=== PATIENT | male | born 1965 | race African-American/Black ===

== ENCOUNTER 2018-02-09 05:45 | Inpatient (IN) | payer MEDICARE, OTHER ==
[2018-02-09] VITALS (10 sets, daily range): BP systolic 161–191; BP diastolic 98–124
[~2018-02-09] VITALS: Ht 188 cm; Wt 88.5 kg
[2018-02-09] MEDS ORDERED: AMLODIPINE BES2.5 MG ORAL (05:49)
[2018-02-09] MEDS ORDERED: KEPPRA XR500 MG ORAL (05:49)
[2018-02-09] MEDS ORDERED: TRAZODONE HCL150 MG ORAL (05:49)
[2018-02-09] MEDS ORDERED: BENAZEPRIL HCL10 MG ORAL (05:49)
[2018-02-09 06:12] LABS: BASOPHILS % (AUTO) 0.7 % (0.0-2.0); EOSINOPHILS % (AUTO) 0.7 % (0.0-3.0); HEMATOCRIT 45.8 % (42.0-52.0); LYMPHOCYTES % (AUTO) 33.6 % (20.0-45.0); MEAN CORPUSCULAR VOLUME 94 FL (80-99); MONOCYTES % (AUTO) 5.2 % (1.0-10.0); NEUTROPHILS % (AUTO) 59.8 % (45.0-75.0); PLATELET COUNT 196 K/UL (150-450); RED BLOOD COUNT 4.89 M/UL (4.70-6.10); RED CELL DISTRIBUTION WIDTH 12.8 % (11.6-14.8); WHITE BLOOD COUNT 8.9 K/UL (4.8-10.8)
--- NOTE | 2018-02-09 06:12 | Emergency Room Report ---
History of Present Illness General Chief Complaint: Seizure Source: Patient, Medical Record Present Illness HPI 53-year-old male history of seizure p/w seizure. Edema states that daughter heard him fall in the bathroom, believed that he had a seizure, patient was postictal phase, had tongue biting. no urinary incontinence. Patient has history of seizures, the last seizure was 6 months ago, Anti seizure medications include breath. Patient has been compliant with medication. No recent fever, chills, chest pain, sob, cough, n/v/d, abdominal pain. Currently patient is only complaining of bilateral back pain states that it probably hurt after he fell. He is currently only ANO 2 Allergies: Coded Allergies: No Known Allergies (Unverified , 02/09/18) Patient History Past Medical History: see triage record Past Surgical History: none Pertinent Family History: none Reviewed Nursing Documentation: PMH: Agreed; PSxH: Agreed Nursing Documentation-PMH Hx Hypertension: Yes Hx Seizures: Yes Review of Systems All Other Systems: negative except mentioned in HPI Physical Exam Vital Signs Date Time Temp Pulse Resp B/P (MAP) Pulse Ox O2 Delivery O2 Flow Rate FiO2 02/09/18 05:44 98.9 104 18 179/103 96 Room Air 99.0 Sp02 EP Interpretation: reviewed, normal General Appearance: alert, mild distress Head: normocephalic, atraumatic Eyes: bilateral eye normal inspection, bilateral eye PERRL, bilateral eye EOMI ENT: other - Tongue abrasion on the right side Neck: normal inspection, full range of motion, supple Respiratory: normal inspection, lungs clear, normal breath sounds, no respiratory distress, no retraction, no wheezing, speaking full sentences, chest symmetrical Cardiovascular #1: normal inspection, regular rate, rhythm, no edema, normal capillary refill Cardiovascular #2: 2+ radial (R), 2+ radial (L) Gastrointestinal: normal inspection, non tender, soft, non-distended, no guarding Genitourinary: no CVA tenderness Musculoskeletal: normal inspection, back normal, normal range of motion, non- tender Neurologic: other - Oriented to person and place only, motor strength out of 5 all extremities, sensation intact throughout, cranial nerves II through XII intact Psychiatric: normal inspection, judgement/insight normal, memory normal Skin: normal inspection, normal color, no rash, warm/dry, well hydrated, normal turgor Medical Decision Making Diagnostic Impression: Primary Impression: Seizure disorder ER Course 53-year-old male with p/w seizure DDX: Primary seizure, triggered by infection UTI/PNA vs. dehydration vs. medication non compliance Electrolyte disturbance: hypoglycemia vs. hyponatremia vs. hypocalcemia vs. hypomagnesemia Cardiac: Arrythmia/acs Intracranial pathology: intracranial bleed, stroke Tox Plan: BGM EKG Labs, seizure medication levels, tox labs Consider CT Signed out patient to Dr. Nichols Pending labs pending CT Reassess for final disposition Last Vital Signs Date Time Temp Pulse Resp B/P (MAP) Pulse Ox O2 Delivery O2 Flow Rate FiO2 02/09/18 05:44 98.9 104 18 179/103 96 Room Air 99.0 Peyton Higgins M.D. February 09, 2018 06:12
[2018-02-09 06:54] LABS: ANION GAP 14 mmol/L (5-15); BLOOD UREA NITROGEN 7 mg/dL (7-18); CALCIUM 9.3 MG/DL (8.5-10.1); CARBON DIOXIDE 24 MMOL/L (21-32); CHLORIDE 100 MMOL/L (98-107); CREATININE 1.3 MG/DL (0.55-1.30); POTASSIUM 3.8 MMOL/L (3.5-5.1); SODIUM 138 MMOL/L (136-145)
[2018-02-09] MEDS ORDERED: Metoprolol 5mg/5ml Inj IVP STA ×2 (06:55→07:38)
[2018-02-09 07:04] LABS: ALANINE AMINOTRANSFERASE 56 U/L (12-78); ALKALINE PHOSPHATASE 78 U/L (46-116); ASPARTATE AMINO TRANSFERASE 132 U/L (15-37); CREATINE KINASE 495 U/L (26-308)
[2018-02-09] MEDS ORDERED: levETIRAcetam 500 MG in D5W 110 ML IV ONE (07:15)
[2018-02-09 07:29] LABS: APPEARANCE,URINE CLEAR; BILIRUBIN, URINE NEGATIVE (NEGATIVE); GLUCOSE, URINE (UA) NEGATIVE (NEGATIVE); KETONES,URINE 1+ (NEGATIVE); LEUKOCYTE ESTERASE ,URINE 1+ (NEGATIVE); NITRITE,URINE NEGATIVE (NEGATIVE); PH,URINE 6 (4.5-8.0); PROTEIN,URINE 3+ (NEGATIVE); UROBILINOGEN,URINE NORMAL MG/DL (0.0-1.0)
[2018-02-09] MEDS ORDERED: levETIRAcetam 500mg/NS100ml IVPB SCH (07:30)
[2018-02-09 07:39] LABS: COLOR,URINE YELLOW
[2018-02-09] MEDS ORDERED: Labetalol 5mg/ml 20ml vial IV ONE (08:30)
[2018-02-09] MEDS ORDERED: Morphine Sulfate 4mg/ml Inj IVP ONE (09:15)
--- NOTE | 2018-02-09 09:43 | Diagnostic Imaging Report ---
Indication: Headache Technique: Contiguous 5 mm thick transaxial imaging of the head obtained in a Siemens Sensation [address] scanner. Soft tissue and bone windows generated. Automatic Exposure Control was utilized. Total Dose length Product (DLP): 1333.[address] Dose Index Volume (CTDIvol): 70.38 mGy Comparison: none Findings: The size and configuration of the cortical sulci, basal cisterns, and ventricles are within normal limits for age. There is no mass effect, midline shift, or edema identified. There is no evidence of acute hemorrhage or abnormal intra-axial or extra-axial fluid collections. The bones and soft tissues are unremarkable. Impression: No mass effect, edema or acute bleed. The CT scanner at [facility] is accredited by the [employer] and the scans are performed using dose optimization techniques as appropriate to a performed exam including Automatic Exposure control.
--- NOTE | 2018-02-09 09:57 | Diagnostic Imaging Report ---
Indication: Dyspnea Comparison: None A single view chest radiograph was obtained. Findings: Cardiomediastinal appearance is within normal limits for age. Pulmonary vascularity is appropriate. The diaphragmatic contour is smooth and costophrenic angles are sharp. No pleural effusions are identified. The bones are unremarkable. Impression: No acute findings
--- NOTE | 2018-02-09 12:29 | History and Physical ---
History of Present Illness General Date patient seen: February 09, 2018 Time patient seen: 12:29 Reason for Hospitalization: Seizure Present Illness HPI Patient is a 53 y/o male with a PMH of seizures and HTN that presented to the ER after having a seizure episode this morning. Patient states that he was in the bathroom when the event happened. He reports LOC and does not recall how long he was unconscious for. He states his daughter found him down on the floor of the bathroom and he had some post-ictal confusion. He states that seizure was unwitnessed. He also reports back pain from the fall. CT head in the ER was negative. Patient was also noted to have elevated SBP in the 180s and was given IV metoprolol 5mg twice. Patient continues to have elevated blood pressure. Reports that he does not regularly check his blood pressure but is compliant with his medications. Also reports compliance with his anticonvulsants but does not recall the name of his medications. Denies chest pain, sob, n/v, abdominal pain, dysuria, headaches, generalized weakness, focal deficits. Reports tobacco abuse for 20 years, 1/7 pack per day. Reports occasional alcohol use but no recent alcohol intake. Denies other illicit drug use. Allergies: Coded Allergies: No Known Allergies (Unverified , 02/09/18) Medication History Scheduled Amlodipine Besylate* (Amlodipine Besylate*), Unknown Dose ORAL DAILY, (Reported) Benazepril Hcl* (Benazepril Hcl*), Unknown Dose ORAL DAILY, (Reported) Levetiracetam (Keppra Xr), Unknown Dose ORAL DAILY, (Reported) Trazodone* (Trazodone*), Unknown Dose ORAL BEDTIME, (Reported) Patient History Healthcare decision maker Resuscitation status Full Code Advanced Directive on File Review of Systems All Other Systems: negative except mentioned in HPI Physical Exam General Appearance: no apparent distress, alert HEENT: normocephalic, atraumatic Neck: non-tender, normal alignment, supple Respiratory/Chest: chest wall non-tender, lungs clear, normal breath sounds Cardiovascular/Chest: normal peripheral pulses, normal rate, regular rhythm Abdomen: normal bowel sounds, non tender, soft Extremities: normal range of motion, non-tender Skin Exam: normal pigmentation, warm/dry Neurologic: waistline joiner lockstitch II-XII grossly normal, no motor/sensory deficits, alert, oriented x 3 Last 24 Hour Vital Signs Date Time Temp Pulse Resp B/P (MAP) Pulse Ox O2 Delivery O2 Flow Rate FiO2 02/09/18 11:30 98.6 95 20 186/101 97 Room Air 98.6 02/09/18 11:10 98.7 84 19 159/102 97 Room Air 98.8 02/09/18 10:11 83 171/100 02/09/18 10:08 98.8 83 21 171/100 96 Room Air 98.8 02/09/18 08:33 87 177/105 02/09/18 08:30 78 20 161/98 96 Room Air 02/09/18 08:21 87 19 177/105 97 Room Air 02/09/18 08:04 88 20 175/105 97 Room Air 02/09/18 08:03 88 172/121 02/09/18 08:00 82 19 191/120 96 Room Air 02/09/18 07:30 98.6 82 19 172/121 97 Room Air 98.6 02/09/18 07:27 104 194/116 02/09/18 05:50 102 21 Room Air 02/09/18 05:50 102 21 167/117 95 Room Air 02/09/18 05:44 98.9 104 18 179/103 96 Room Air 99.0 Intake and Output 02/08/18 02/09/18 19:00 07:00 Intake Total 0 ml Balance 0 ml Intake Oral 0 ml Laboratory Tests Test 02/09/18 06:00 02/09/18 07:15 White Blood Count 8.9 K/UL (4.8-10.8) Red Blood Count 4.89 M/UL (4.70-6.10) Hemoglobin 15.0 G/DL (14.2-18.0) Hematocrit 45.8 % (42.0-52.0) Mean Corpuscular Volume 94 FL (80-99) Mean Corpuscular Hemoglobin 30.8 PG (27.0-31.0) Mean Corpuscular Hemoglobin Concent 32.9 G/DL (32.0-36.0) Red Cell Distribution Width 12.8 % (11.6-14.8) Platelet Count 196 K/UL (150-450) Mean Platelet Volume 6.3 FL (6.5-10.1) L Neutrophils (%) (Auto) 59.8 % (45.0-75.0) Lymphocytes (%) (Auto) 33.6 % (20.0-45.0) Monocytes (%) (Auto) 5.2 % (1.0-10.0) Eosinophils (%) (Auto) 0.7 % (0.0-3.0) Basophils (%) (Auto) 0.7 % (0.0-2.0) Prothrombin Time 10.8 SEC (9.30-11.50) Prothromb Time International Ratio 1.0 (0.9-1.1) Activated Partial Thromboplast Time 25 SEC (23-33) Sodium Level 138 MMOL/L (136-145) Potassium Level 3.8 MMOL/L (3.5-5.1) Chloride Level 100 MMOL/L (98-107) Carbon Dioxide Level 24 MMOL/L (21-32) Anion Gap 14 mmol/L (5-15) Blood Urea Nitrogen 7 mg/dL (7-18) Creatinine 1.3 MG/DL (0.55-1.30) Estimat Glomerular Filtration Rate > 60 mL/min (>60) Glucose Level 172 MG/DL (74-106) H Calcium Level 9.3 MG/DL (8.5-10.1) Total Bilirubin 1.0 MG/DL (0.2-1.0) Aspartate Amino Transf (AST/SGOT) 132 U/L (15-37) H Alanine Aminotransferase (ALT/SGPT) 56 U/L (12-78) Alkaline Phosphatase 78 U/L (46-116) Total Creatine Kinase 495 U/L (26-308) H Troponin I 0.222 ng/mL (0.000-0.056) Total Protein 8.1 G/DL (6.4-8.2) Albumin 4.0 G/DL (3.4-5.0) Globulin 4.1 g/dL Albumin/Globulin Ratio 1.0 (1.0-2.7) Salicylates Level 3.7 ug/mL (2.8-20) Acetaminophen Level < 2 MCG/ML (10-30) L Serum Alcohol < 3 mg/dL Urine Color Yellow Urine Appearance Clear Urine pH 6 (4.5-8.0) Urine Specific Parsons 1.020 (1.005-1.035) Urine Protein 3+ (NEGATIVE) H Urine Glucose (UA) Negative (NEGATIVE) Urine Ketones 1+ (NEGATIVE) H Urine Occult Blood 4+ (NEGATIVE) H Urine Nitrite Negative (NEGATIVE) Urine Bilirubin Negative (NEGATIVE) Urine Urobilinogen Normal MG/DL (0.0-1.0) Urine Leukocyte Esterase 1+ (NEGATIVE) H Urine RBC 5-10 /HPF (0 - 0) H Urine WBC 2-4 /HPF (0 - 0) Urine Squamous Epithelial Cells Occasional /LPF Urine Bacteria Occasional /HPF (NONE) Urine Hyaline Casts 0-2 /LPF (NONE) H Urine Fine Granular Casts 0-2 /LPF (NONE) H Urine Opiates Screen Negative (NEGATIVE) Urine Barbiturates Screen Negative (NEGATIVE) Phencyclidine (PCP) Screen Negative (NEGATIVE) Urine Amphetamines Screen Negative (NEGATIVE) Urine Benzodiazepines Screen Negative (NEGATIVE) Urine Cocaine Screen Negative (NEGATIVE) Urine Marijuana (THC) Screen Negative (NEGATIVE) Height (Feet): 6 Height (Inches): 2.00 Weight (Pounds): 195 Medications Current Medications Medications (Trade) Dose Ordered Sig/Rita Route PRN Reason Start Time Stop Time Status Last Admin Dose Admin Acetaminophen (Tylenol) 650 mg Q4H PRN ORAL Mild Pain (Pain Scale 1-3) 02/09/18 12:15 03/11/18 12:14 UNV Acetaminophen/ Hydrocodone Bitart (Hazen 10/325) 1 tab Q4H PRN ORAL For Pain 02/09/18 12:15 02/16/18 12:14 UNV Dextrose (Dextrose 50%) 25 ml STAT PRN IV Hypoglycemia 02/09/18 12:15 03/11/18 12:14 UNV Dextrose (Dextrose 50%) 50 ml STAT PRN IV Hypoglycemia 02/09/18 12:15 03/11/18 12:14 UNV Heparin Sodium (Porcine) (Heparin 5000 units/ml) 5,000 units EVERY 12 HOURS SUBQ 02/09/18 21:00 03/11/18 20:59 UNV Levetiracetam 100 ml @ 400 mls/hr ONCE IVPB 02/09/18 07:30 03/11/18 07:29 02/09/18 07:27 Ondansetron HCl (Zofran) 4 mg Q6H PRN IVP Nausea & Vomiting 02/09/18 12:15 03/11/18 12:14 UNV Assessment/Plan Problem List: (1) Hypertensive emergency ICD Codes: I16.1 - Hypertensive emergency SNOMED: 043264464992725 (2) Elevated troponin ICD Codes: R74.8 - Abnormal levels of other serum enzymes SNOMED: 226580581, 909968811, 688112875 (3) Post-ictal confusion ICD Codes: F05 - Delirium due to known physiological condition SNOMED: 18262545 (4) Seizure disorder ICD Codes: G40.909 - Epilepsy, unspecified, not intractable, without status epilepticus SNOMED: 935448804 Status: stable, progressing Assessment/Plan - Admit to [facility] - Cardiology and neurology consulted - EKG NSR - trend trops x 3. 0.22 --> - check TTE - s/p IV keppra. check keppra level. start keppra 500mg BID for now - hydralazine 10mg IV q6hr prn SBP > 160 - norvasc 10mg qd - CT head negative - CXR negative - utox negative - dirty UA. will repeat UA with urine culture - pain control and supportive care DVT ppx: HSQ Full code Disposition: I anticipate the patient to be discharged to the following environment once patient is medically cleared - home I spent a total of 72 minutes on this patient's case, with greater than 50% spent on care and coordination of the patient. Case was d/w cardiology, neurology, nursing staff, CM/SW, and patient. Kirsty Gu NP February 09, 2018 12:29
--- NOTE | 2018-02-09 15:06 | Cardiology Report ---
APPROVED REPORT EXAM: Two-dimensional and M-mode echocardiogram with Doppler and color Doppler. INDICATION Hypertension/HCVD M-Mode DIMENSIONS IVSd1.1 (0.7-1.1cm)Left Atrium (MM)2.9 (1.6-4.0cm) LVDd4.4 (3.5-5.6cm)Aortic Root3.5 (2.0-3.7cm) PWd1.2 (0.7-1.1cm)Aortic Cusp Exc.2.0 (1.5-2.0cm) LVDs2.9 (2.5-4.0cm) PWs1.6 cm Normal left ventricular chamber size, systolic function and wall motion. Left ventricular ejection fraction estimated to be 60 %. Borderline left ventricular hypertrophy. Anterior Echo-free space, may be due to pericardial fat or effusion. All other cardiac chamber sizes are within normal limits. Focal aortic valve sclerosis with adequate cusp excursion. Thickened mitral valve leaflets with normal excursion. Mild mitral annulus and aortic root calcification. Normal pulmonic valve structure. Normal tricuspid valve structure. IVC dilated at 2.6 cm without physiological collapse, suggestive of increased RA pressure. A color flow and spectral Doppler study was performed and revealed: No aortic insufficiency. Mild mitral regurgitation. Mitral diastolic velocities suggest mild left ventricular diastolic dysfunction (Grade I). Mild tricuspid regurgitation. Tricuspid systolic velocities suggests peak right ventricular systolic pressure of 34 mmHg. No pulmonic regurgitation present.
--- NOTE | 2018-02-09 15:46 | Cardiology Report ---
APPROVED REPORT EKG Measurement Heart [id number] Normal sinus rhythm Normal ECG
--- NOTE | 2018-02-09 16:13 | Consultation ---
Consult Note Consult Note NEUROLOGY CONSULTATION: Full note dictated #[id number] 53 y/o, RH, BM with long H/O HTN and liberal alcohol use. He had his first seizure ~3-4 months ago associated with alcohol use. He was started on an antiseizure medicine at that time and did well. Then this morning he had another seizure. This was not associated with ETOH - he had his last drink 3 weeks ago. ON EXAM: Mild problems with memory. No focal dysfunction. Brain CT benign. IMPRESSION: Two generalized seizures in the last few months. REC: Agree with starting Keppra but patient will need 1 G q 12 hours. EEG MRI of brain Patient instructed on the essentials of seizure hygiene. Jerilyn Fernandes M.D., M.S.P.H. JERILYN FERNANDES February 09, 2018 16:13
--- NOTE | 2018-02-09 16:18 | Cardiac Electrophysiology PN ---
Subjective Subjective [id number] Objective Last 24 Hour Vital Signs Date Time Temp Pulse Resp B/P (MAP) Pulse Ox O2 Delivery O2 Flow Rate FiO2 02/09/18 12:00 90 02/09/18 11:30 98.6 95 20 186/101 97 Room Air 98.6 02/09/18 11:10 98.7 84 19 159/102 97 Room Air 98.8 02/09/18 10:11 83 171/100 02/09/18 10:08 98.8 83 21 171/100 96 Room Air 98.8 02/09/18 08:33 87 177/105 02/09/18 08:30 78 20 161/98 96 Room Air 02/09/18 08:21 87 19 177/105 97 Room Air 02/09/18 08:04 88 20 175/105 97 Room Air 02/09/18 08:03 88 172/121 02/09/18 08:00 82 19 191/120 96 Room Air 02/09/18 07:30 98.6 82 19 172/121 97 Room Air 98.6 02/09/18 07:27 104 194/116 02/09/18 05:50 102 21 Room Air 02/09/18 05:50 102 21 167/117 95 Room Air 02/09/18 05:44 98.9 104 18 179/103 96 Room Air 99.0 Intake and Output 02/08/18 02/09/18 19:00 07:00 Intake Total 0 ml Balance 0 ml Intake Oral 0 ml Laboratory Tests Test 02/09/18 06:00 02/09/18 07:15 02/09/18 14:50 White Blood Count 8.9 K/UL (4.8-10.8) Red Blood Count 4.89 M/UL (4.70-6.10) Hemoglobin 15.0 G/DL (14.2-18.0) Hematocrit 45.8 % (42.0-52.0) Mean Corpuscular Volume 94 FL (80-99) Mean Corpuscular Hemoglobin 30.8 PG (27.0-31.0) Mean Corpuscular Hemoglobin Concent 32.9 G/DL (32.0-36.0) Red Cell Distribution Width 12.8 % (11.6-14.8) Platelet Count 196 K/UL (150-450) Mean Platelet Volume 6.3 FL (6.5-10.1) L Neutrophils (%) (Auto) 59.8 % (45.0-75.0) Lymphocytes (%) (Auto) 33.6 % (20.0-45.0) Monocytes (%) (Auto) 5.2 % (1.0-10.0) Eosinophils (%) (Auto) 0.7 % (0.0-3.0) Basophils (%) (Auto) 0.7 % (0.0-2.0) Prothrombin Time 10.8 SEC (9.30-11.50) Prothromb Time International Ratio 1.0 (0.9-1.1) Activated Partial Thromboplast Time 25 SEC (23-33) Sodium Level 138 MMOL/L (136-145) Potassium Level 3.8 MMOL/L (3.5-5.1) Chloride Level 100 MMOL/L (98-107) Carbon Dioxide Level 24 MMOL/L (21-32) Anion Gap 14 mmol/L (5-15) Blood Urea Nitrogen 7 mg/dL (7-18) Creatinine 1.3 MG/DL (0.55-1.30) Estimat Glomerular Filtration Rate > 60 mL/min (>60) Glucose Level 172 MG/DL (74-106) H Calcium Level 9.3 MG/DL (8.5-10.1) Total Bilirubin 1.0 MG/DL (0.2-1.0) Aspartate Amino Transf (AST/SGOT) 132 U/L (15-37) H Alanine Aminotransferase (ALT/SGPT) 56 U/L (12-78) Alkaline Phosphatase 78 U/L (46-116) Total Creatine Kinase 495 U/L (26-308) H Troponin I 0.222 ng/mL (0.000-0.056) 0.010 ng/mL (0.000-0.056) Total Protein 8.1 G/DL (6.4-8.2) Albumin 4.0 G/DL (3.4-5.0) Globulin 4.1 g/dL Albumin/Globulin Ratio 1.0 (1.0-2.7) Salicylates Level 3.7 ug/mL (2.8-20) Acetaminophen Level < 2 MCG/ML (10-30) L Serum Alcohol < 3 mg/dL Urine Color Yellow Urine Appearance Clear Urine pH 6 (4.5-8.0) Urine Specific Daisy 1.020 (1.005-1.035) Urine Protein 3+ (NEGATIVE) H Urine Glucose (UA) Negative (NEGATIVE) Urine Ketones 1+ (NEGATIVE) H Urine Occult Blood 4+ (NEGATIVE) H Urine Nitrite Negative (NEGATIVE) Urine Bilirubin Negative (NEGATIVE) Urine Urobilinogen Normal MG/DL (0.0-1.0) Urine Leukocyte Esterase 1+ (NEGATIVE) H Urine RBC 5-10 /HPF (0 - 0) H Urine WBC 2-4 /HPF (0 - 0) Urine Squamous Epithelial Cells Occasional /LPF Urine Bacteria Occasional /HPF (NONE) Urine Hyaline Casts 0-2 /LPF (NONE) H Urine Fine Granular Casts 0-2 /LPF (NONE) H Urine Opiates Screen Negative (NEGATIVE) Urine Barbiturates Screen Negative (NEGATIVE) Phencyclidine (PCP) Screen Negative (NEGATIVE) Urine Amphetamines Screen Negative (NEGATIVE) Urine Benzodiazepines Screen Negative (NEGATIVE) Urine Cocaine Screen Negative (NEGATIVE) Urine Marijuana (THC) Screen Negative (NEGATIVE) Levetiracetam (Keppra) Level Pending Miguel Carrillo MD February 09, 2018 16:18
[2018-02-09] MEDS ORDERED: Gadavist 7.5mMol/7.5ml vial IV PRN (16:30)
[2018-02-09 16:41] LABS: APPEARANCE,URINE CLEAR; BILIRUBIN, URINE NEGATIVE (NEGATIVE); GLUCOSE, URINE (UA) NEGATIVE (NEGATIVE); KETONES,URINE 1+ (NEGATIVE); LEUKOCYTE ESTERASE ,URINE 1+ (NEGATIVE); NITRITE,URINE NEGATIVE (NEGATIVE); PH,URINE 7 (4.5-8.0); PROTEIN,URINE 2+ (NEGATIVE); UROBILINOGEN,URINE 1 MG/DL (0.0-1.0)
[2018-02-09 16:50] LABS: COLOR,URINE YELLOW
[2018-02-09] MEDS: HYDROcodone/Acetamin 10/325 tab ORAL PRN (20:17)
[2018-02-09] MEDS: levETIRAcetam 500mg/5ml Liquid ORAL SCH (20:43)
[2018-02-09] MEDS: Metoprolol 25mg tab ORAL SCH (20:44)
[2018-02-09] MEDS: Heparin 5000 units/ml inj SUBQ SCH (20:46)
[2018-02-09] MEDS ORDERED: levETIRAcetam 500mg/5ml Liquid NG SCH (21:00)
--- NOTE | 2018-02-09 22:15 | Consultation ---
DATE OF CONSULTATION: 02/09/2018 NEUROLOGY CONSULTATION CONSULTING PHYSICIAN: Jose Martin Fernandes M.D. REQUESTING PHYSICIAN: Licha Uribe M.D. HISTORY: Mr. Javier Aldana is a 53-year-old, right-handed black, gentleman who does have a past history of hypertension and a single seizure a few months ago. As per the patient, he was functioning perfectly well until approximately 3 to 4 months ago when he had a seizure. He states that he had been drinking a lot at that time and apparently lost consciousness without any warning, fell down, was witnessed having generalized body jerking for a few minutes and was then confused and disoriented for a few more minutes. He was taken to a hospital, evaluated there and started on an antiseizure medicine, the name and dose of the medicine he cannot remember. He states that he was taking the medicine on a regular basis, but this morning he apparently was in the shower and again passed out. When he regained consciousness, he had bitten his tongue, had generalized body aching, was confused and disoriented and was in need of help from his bqrlbpxg-kw-kre who stays with him to be helped up. He felt like he had another seizure. He was brought into the [facility] emergency room. He states that at this time, there was no association of alcohol with the seizure, as he had not had a drink for at least 3 weeks. He cannot think of any other factor that could have triggered the seizure. He states that he has had no warnings prior to both the seizures and in addition, he also denies any change in himself following the seizure. He was evaluated with a CT scan of the brain, which revealed no acute pathology. PAST MEDICAL HISTORY: Significant for high blood pressure. FAMILY HISTORY: Nothing significant with no family history of seizures. PERSONAL HISTORY: Home: He lives with his [id number]-yto. 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 Habits: He drinks alcohol in varying quantities, but says that he stopped drinking approximately 3 weeks ago. He smokes approximately 1 pack of cigarettes a week. He denies the use of any illicit drugs. MEDICATIONS: Present medications include amlodipine, heparin for DVT prophylaxis, hydralazine, Tylenol, Zofran, Adams p.r.n., morphine p.r.n., Zofran p.r.n., labetalol and he was started on Keppra in the emergency room. PHYSICAL EXAMINATION: GENERAL: He is a well-developed, well-nourished, pleasant black gentleman, lying in bed, in no acute distress. VITAL SIGNS: Pulse 90/minute, blood pressure 186/101 mmHg, respirations 20/minute, and and temperature 98.6 degrees Fahrenheit. HEAD: Normocephalic and atraumatic. EENT: Examination benign except for a right tongue bite tanya. NECK: No neck rigidity was observed. NEUROLOGICAL EXAMINATION: MENTAL STATUS EXAMINATION: He was awake and alert. He was oriented to person, place, and time except for the name of the hospital. He was able to recall 3/3 words immediately, but could only remember 2/3 words in 1 minute and 3 minutes even on the second trial. He was able to remember presidents, Trump and Obama spontaneously, but needed hints to remember through Urias senior. His mathematical skills were fairly good. His visuospatial function was preserved. SPEECH: He had no dysarthria. LANGUAGE: He had no aphasia. CRANIAL NERVE EXAMINATION: II: The visual maza were intact on confrontation testing. III, IV & : External ocular movements were full and the pupils 3 mm in diameter, equal, round, regular, and reactive to light. V: He had normal facial sensations and the temporales, masseters, and pterygoids functioned normally. VII: He had normal facial expressions and no facial asymmetry. VIII: He was able to hear well bilaterally and had no nystagmus. IX: The palate moved symmetrically on phonation. X: He had no hoarseness of voice. XI: The sternocleidomastoids and trapezii functioned normally. XII: The tongue was in the midline without any fasciculations or atrophy. MOTOR SYSTEM: The tone was normal in all four extremities. Examination of muscle mass revealed no focal wasting. Examination of power revealed G 5/5 power in all muscle groups tested. SENSORY EXAMINATION: He had intact sensations to pinprick, light touch, and graphesthesia. COORDINATION: He performed well on ngiysn-tq-bftp and sslz-mn-nvxf testing. On Romberg test, he swayed, but did not fall to one side or the other. REFLEXES: 1+ and bilaterally symmetrical at the biceps, triceps, brachioradialis, and knees, 0 at both ankles. The plantar responses were flexor bilaterally. STANCE: He had a normal stance. GAIT: he had a normal regular gait. DIAGNOSTIC IMPRESSION: 1. Mr. Javier Aldana is a 53-year-old, right-handed black, gentleman, with a history of hypertension and liberal alcohol use in the past who had a generalized seizure approximately 3 to 4 months ago, was started on an antiseizure medicine - the name of which he cannot remember and did relatively well. Then this morning, he had another seizure. He states that this seizure was not associated with any alcohol use. He said that his last drink was 3 weeks ago and in addition, he states that he was taking his medicine regularly. 2. On neurological examination, at this time, he does have mild problems with memory, decreased deep tendon reflexes, but the rest of the neurological examination is essentially benign. 3. The CT scan of the brain without contrast performed in the emergency room is also benign. 4. Laboratory data including a CBC and chemistry panel are benign except for a blood glucose elevated to 172, AST elevated to 132, CK elevated to 495 and troponin elevated to 0.222. His urine toxicology screen was negative and in addition, his serum alcohol level was <3. His urinalysis revealed 1+ leukocyte esterase, 5-10 red blood cells, and 2-4 white blood cells per high-power field. 5. The patient's history, neurological examination, laboratory data and imaging studies are most compatible with 2 generalized seizures, the first one approximately 3 to 4 months ago and the second one today. It is unclear as to why the patient has developed a seizure disorder at this age. RECOMMENDATIONS: 1. Agree with management thus far. 2. Agree with starting the patient on Keppra, but the patient weighs approximately 88 kilos and he should be on Keppra 1 G q.12 hours. 3. An EEG will be performed to evaluate the patient for the type of seizure disorder. 4. An MRI scan of the brain without and with gadolinium should be performed to evaluate the patient for his seizure disorder. 5. The patient was instructed on the essentials of seizure hygiene. He was told to eat at regular intervals, not get dehydrated, stop drinking alcohol, make sure that he does not use any illicit drugs, make sure that he takes his antiseizure medicine on a regular basis and make sure that he sleeps well - that is he sleeps at least 7 hours in a 24-hour period. 6. The patient will be observed closely and depending on how he fares further recommendations will be given. Thank you for entrusting me with the care of Mr. Aldana. I shall follow him with you. Jose Martin Fernandes M.D., M.S.P.H. DR: LAUREN JOB#: [id number]
[2018-02-10] VITALS (7 sets, daily range): BP systolic 151–162; BP diastolic 85–116
--- NOTE | 2018-02-10 03:15 | Consultation ---
DATE OF CONSULTATION: 02/09/2018 CARDIOLOGY CONSULTATION CONSULTING PHYSICIAN: Miguel Carrillo M.D. REFERRING PHYSICIAN: Licha Uribe M.D. REASON FOR CONSULTATION: Elevated troponin and hypertension. HISTORY OF PRESENT ILLNESS: The patient is a 53-year-old gentleman with history of hypertension and seizure disorder, who was brought to the emergency room for the episode of seizures. His prior episode was about 4 months ago with the alcohol use. The patient was started on anti-seizure medication and at that time he did well. Now, the patient had an episode of seizure and not associated with alcohol today. His last drink was about three weeks ago. The patient was admitted and a Cardiology consultation was obtained as the patient's troponin was also elevated. PAST MEDICAL HISTORY: 1. Hypertension. 2. History of seizure in the past. FAMILY HISTORY: Noncontributory. SOCIAL HISTORY: He occasionally drinks alcohol. REVIEW OF SYSTEMS: Negative other than what was mentioned in the history of present illness. PHYSICAL EXAMINATION: VITAL SIGNS: Blood pressure was 186/101, it was as high as 194/116, pulse is 90, respirations 18, and he is afebrile. HEAD AND NECK: Showed no JVD or carotid bruit. LUNGS: Clear. CARDIOVASCULAR: Shows regular S1 and S2 with no gallop or murmur. ABDOMEN: Soft. EXTREMITIES: No pitting edema. LABORATORY DATA: Labs show sodium 138, potassium 3.8, BUN 7, creatinine 1.2, and glucose of 172. CK was 295, troponin was 0.222. Second troponin is negative. His urine toxicology was negative. His INR is 1. ASSESSMENT AND PLAN: 1. Accelerated hypertension with blood pressure in the 190s. To control the blood pressure with a combination of amlodipine 10 mg and add low-dose beta-wong to his medical regimen, add metoprolol 25 mg b.i.d. He also has p.r.n. hydralazine. 2. Troponin leak. This was seizures with elevated CPK. His EKG is completely normal and his echocardiogram is also normal with ejection fraction of 60%. He does not have any chest pain. He does not have any prior coronary artery disease. Repeat EKG in the morning and do one more troponin in the morning. 3. Second episode of seizure. The patient was evaluated by Dr. Fernandes, who already started on Keppra. Thank you very much for allowing me to participate in the care of this patient. Please do not hesitate to contact me for any questions regarding my evaluation. Miguel Carrillo M.D. DR: YOANA JOB#: [id number] CC:
[2018-02-10 05:00] LABS: EOSINOPHILS % (AUTO) 1.4 % (0.0-3.0); HEMATOCRIT 43.5 % (42.0-52.0); HEMOGLOBIN 14.8 G/DL (14.2-18.0); LYMPHOCYTES % (AUTO) 23.9 % (20.0-45.0); MEAN CORPUSCULAR VOLUME 93 FL (80-99); MONOCYTES % (AUTO) 6.5 % (1.0-10.0); NEUTROPHILS % (AUTO) 67.2 % (45.0-75.0); PLATELET COUNT 173 K/UL (150-450); RED BLOOD COUNT 4.67 M/UL (4.70-6.10); RED CELL DISTRIBUTION WIDTH 12.4 % (11.6-14.8)
[2018-02-10 05:34] LABS: ANION GAP 11 mmol/L (5-15); BLOOD UREA NITROGEN 9 mg/dL (7-18); CALCIUM 9.3 MG/DL (8.5-10.1); CARBON DIOXIDE 27 MMOL/L (21-32); CHLORIDE 99 MMOL/L (98-107); CHOLESTEROL 188 MG/DL (< 200); CREATININE 0.9 MG/DL (0.55-1.30); HDL CHOLESTEROL 112 MG/DL (40-60); POTASSIUM 3.5 MMOL/L (3.5-5.1); SODIUM 137 MMOL/L (136-145); TRIGLYCERIDES 68 MG/DL (30-150)
[2018-02-10] MEDS: HYDROcodone/Acetamin 10/325 tab ORAL PRN ×3 (06:36→20:45)
[2018-02-10] MEDS: levETIRAcetam 500mg/5ml Liquid ORAL SCH ×2 (08:54→20:43)
[2018-02-10] MEDS: Metoprolol 25mg tab ORAL SCH ×2 (08:54→20:45)
[2018-02-10] MEDS: Heparin 5000 units/ml inj SUBQ SCH ×2 (08:55→20:49)
--- NOTE | 2018-02-10 13:46 | Diagnostic Imaging Report ---
Indication: Seizure Technique: The head was imaged in a 1.5 Nurys magnet. Sequences obtained include sagittal and axial T1 FLAIR, axial T2 fast spin echo with fat saturation, axial T2 FLAIR, diffusion and ADC map. Gadolinium-enhanced axial and coronal T1 FLAIR obtained also. Coronal T1 gradient echo and T2 FLAIR through the hippocampus. Comparison: None Findings: Mild, nonspecific T2 hyperintensity noted within white matter. This may be due to chronic small vessel disease. Given the patient's age, would consider other possibilities such as demyelinating disease. No abnormal enhancement is identified. There is no restricted diffusion. [place]-white differentiation is normal. There is no mass effect, midline shift, edema, or hemorrhage. There are no abnormal extra-axial or intra-axial fluid collections. The hippocampus appears symmetric in volume and normal in signal. The corpus callosum and sella are unremarkable. The brainstem and cerebellum are unremarkable. Bone marrow signal within the visualized osseous structures appears age appropriate and unremarkable otherwise. Impression: No acute intracranial findings. Nonspecific white matter T2 hyperintensity. Consider demyelinating disease given patient's age.
--- NOTE | 2018-02-10 16:27 | Cardiac Electrophysiology PN ---
Assessment/Plan Assessment/Plan 1. Accelerated hypertension with blood pressure in the 190s. On Amlodipine 10 mg and metoprolol 25 mg b.i.d. He also has p.r.n. hydralazine. 2. Troponin leak. This was seizures with elevated CPK. EKG is completely normal and his echocardiogram is also normal with ejection fraction of 60%. He does not have any chest pain. He does not have any prior coronary artery disease. 3. Second episode of seizure. Already started on Keppra by Dr. Fernandes Subjective Subjective Feeling better. No chest pain or SOB. Objective Last 24 Hour Vital Signs Date Time Temp Pulse Resp B/P (MAP) Pulse Ox O2 Delivery O2 Flow Rate FiO2 02/10/18 15:27 88 02/10/18 12:00 99.0 92 20 156/116 96 Room Air 99.0 02/10/18 11:55 94 02/10/18 08:54 104 151/99 02/10/18 08:54 104 151/99 02/10/18 08:00 98.7 104 21 151/99 95 Room Air 98.7 02/10/18 07:46 89 02/10/18 04:00 98.9 88 20 153/85 98 Room Air 98.9 02/10/18 04:00 80 02/10/18 00:00 98.7 89 20 151/92 94 Room Air 98.7 02/09/18 23:58 81 02/09/18 20:44 113 165/124 02/09/18 20:00 98.9 113 20 165/124 97 Room Air 98.9 02/09/18 19:23 97 02/09/18 16:31 83 Intake and Output 02/09/18 02/10/18 19:00 07:00 Intake Total 400 ml 300 ml Balance 400 ml 300 ml Intake Oral 300 ml 300 ml IV Total 100 ml # Voids 3 1 Laboratory Tests Test 02/10/18 03:50 02/10/18 12:05 White Blood Count 6.0 K/UL (4.8-10.8) Red Blood Count 4.67 M/UL (4.70-6.10) L Hemoglobin 14.8 G/DL (14.2-18.0) Hematocrit 43.5 % (42.0-52.0) Mean Corpuscular Volume 93 FL (80-99) Mean Corpuscular Hemoglobin 31.8 PG (27.0-31.0) H Mean Corpuscular Hemoglobin Concent 34.1 G/DL (32.0-36.0) Red Cell Distribution Width 12.4 % (11.6-14.8) Platelet Count 173 K/UL (150-450) Mean Platelet Volume 7.3 FL (6.5-10.1) Neutrophils (%) (Auto) 67.2 % (45.0-75.0) Lymphocytes (%) (Auto) 23.9 % (20.0-45.0) Monocytes (%) (Auto) 6.5 % (1.0-10.0) Eosinophils (%) (Auto) 1.4 % (0.0-3.0) Basophils (%) (Auto) 1.0 % (0.0-2.0) Sodium Level 137 MMOL/L (136-145) Potassium Level 3.5 MMOL/L (3.5-5.1) Chloride Level 99 MMOL/L (98-107) Carbon Dioxide Level 27 MMOL/L (21-32) Anion Gap 11 mmol/L (5-15) Blood Urea Nitrogen 9 mg/dL (7-18) Creatinine 0.9 MG/DL (0.55-1.30) Estimat Glomerular Filtration Rate > 60 mL/min (>60) Glucose Level 92 MG/DL (74-106) Hemoglobin A1c 5.5 % (4.3-6.0) Calcium Level 9.3 MG/DL (8.5-10.1) Magnesium Level 1.7 MG/DL (1.8-2.4) L Troponin I 0.006 ng/mL (0.000-0.056) 0.000 ng/mL (0.000-0.056) Triglycerides Level 68 MG/DL (30-150) Cholesterol Level 188 MG/DL (< 200) LDL Cholesterol 64 mg/dL (<100) HDL Cholesterol 112 MG/DL (40-60) H Cholesterol/HDL Ratio 1.7 (3.3-4.4) L Thyroid Stimulating Hormone (TSH) 1.718 uiU/mL (0.358-3.740) Microbiology Date/Time Source Procedure Growth Status 02/09/18 16:15 Urine,Clean Catch Urine Culture - Preliminary NO GROWTH Resulted Objective HEAD AND NECK: No JVD or carotid bruit. LUNGS: Clear. CARDIOVASCULAR: Regular S1 and S2 with no gallop or murmur. ABDOMEN: Soft. EXTREMITIES: No pitting edema. Miguel Carrillo MD February 10, 2018 16:27
--- NOTE | 2018-02-10 17:40 | Neurology Progress Note ---
Interim History Interim History Interim History Mr. Aldana feels better. He is still sore all over. He has been seizure-free. He has been walking to and from the bathroom and is steady on his feet. He is tolerating the Keppra well. He denies any new neurologic symptoms. Review of Systems Neuro Review of Systems Benign. Objective Physical Exam Last Vital Signs Date Time Temp Pulse Resp B/P (MAP) Pulse Ox O2 Delivery O2 Flow Rate FiO2 02/10/18 15:27 88 02/10/18 12:00 99.0 20 156/116 96 Room Air 99.0 Laboratory Tests Test 02/10/18 03:50 02/10/18 12:05 White Blood Count 6.0 K/UL (4.8-10.8) Red Blood Count 4.67 M/UL (4.70-6.10) L Hemoglobin 14.8 G/DL (14.2-18.0) Hematocrit 43.5 % (42.0-52.0) Mean Corpuscular Volume 93 FL (80-99) Mean Corpuscular Hemoglobin 31.8 PG (27.0-31.0) H Mean Corpuscular Hemoglobin Concent 34.1 G/DL (32.0-36.0) Red Cell Distribution Width 12.4 % (11.6-14.8) Platelet Count 173 K/UL (150-450) Mean Platelet Volume 7.3 FL (6.5-10.1) Neutrophils (%) (Auto) 67.2 % (45.0-75.0) Lymphocytes (%) (Auto) 23.9 % (20.0-45.0) Monocytes (%) (Auto) 6.5 % (1.0-10.0) Eosinophils (%) (Auto) 1.4 % (0.0-3.0) Basophils (%) (Auto) 1.0 % (0.0-2.0) Sodium Level 137 MMOL/L (136-145) Potassium Level 3.5 MMOL/L (3.5-5.1) Chloride Level 99 MMOL/L (98-107) Carbon Dioxide Level 27 MMOL/L (21-32) Anion Gap 11 mmol/L (5-15) Blood Urea Nitrogen 9 mg/dL (7-18) Creatinine 0.9 MG/DL (0.55-1.30) Estimat Glomerular Filtration Rate > 60 mL/min (>60) Glucose Level 92 MG/DL (74-106) Hemoglobin A1c 5.5 % (4.3-6.0) Calcium Level 9.3 MG/DL (8.5-10.1) Magnesium Level 1.7 MG/DL (1.8-2.4) L Troponin I 0.006 ng/mL (0.000-0.056) 0.000 ng/mL (0.000-0.056) Triglycerides Level 68 MG/DL (30-150) Cholesterol Level 188 MG/DL (< 200) LDL Cholesterol 64 mg/dL (<100) HDL Cholesterol 112 MG/DL (40-60) H Cholesterol/HDL Ratio 1.7 (3.3-4.4) L Thyroid Stimulating Hormone (TSH) 1.718 uiU/mL (0.358-3.740) Neurologic Exam Objective PHYSICAL EXAMINATION: GENERAL: He is a well-developed, well-nourished, pleasant black gentleman, lying in bed, in no acute distress. HEAD: Normocephalic and atraumatic. EENT: Examination benign except for a right tongue bite tanya. NECK: No neck rigidity was observed. NEUROLOGICAL EXAMINATION: MENTAL STATUS EXAMINATION: He was awake and alert. He was oriented to person, place, and time. He was able to recall 3/3 words immediately, but could only remember 2/3 words in 1 minute and 3 minutes. He was able to remember presidents, Trump and Obama spontaneously, but needed hints to remember through Urias senior. His mathematical skills were fairly good. His visuospatial function was preserved. SPEECH: He had no dysarthria. LANGUAGE: He had no aphasia. CRANIAL NERVE EXAMINATION: II: The visual maza were intact on confrontation testing. III, IV & : External ocular movements were full and the pupils 3 mm in diameter, equal, round, regular, and reactive to light. V: He had normal facial sensations and the temporales, masseters, and pterygoids functioned normally. VII: He had normal facial expressions and no facial asymmetry. VIII: He was able to hear well bilaterally and had no nystagmus. IX: The palate moved symmetrically on phonation. X: He had no hoarseness of voice. XI: The sternocleidomastoids and trapezii functioned normally. XII: The tongue was in the midline without any fasciculations or atrophy. MOTOR SYSTEM: The tone was normal in all four extremities. Examination of muscle mass revealed no focal wasting. Examination of power revealed G 5/5 power in all muscle groups tested. SENSORY EXAMINATION: He had intact sensations to pinprick, light touch, and graphesthesia. COORDINATION: He performed well on gthjcu-iw-awza and tnlj-vt-qujw testing. On Romberg test, he swayed, but did not fall to one side or the other. REFLEXES: 1+ and bilaterally symmetrical at the biceps, triceps, brachioradialis , and knees, 0 at both ankles. The plantar responses were flexor bilaterally. STANCE: He had a normal stance. GAIT: he had a normal regular gait. Impression/Recommendations Diagnostic Impression 1. Mr. Javier Aldana is a 53-year-old, right-handed black, gentleman, with a history of hypertension and liberal alcohol use in the past who had a generalized seizure approximately 3 to 4 months ago, was started on an antiseizure medicine - the name of which he cannot remember and did relatively well. Then on the morning of February 09, 2018, he had another seizure. He states that this seizure was not associated with any alcohol use. He said that his last drink was 3 weeks ago and in addition, he states that he was taking his medicine regularly. 2. He feels better. He is still sore all over. He has been seizure-free. He has been walking to and from the bathroom and is steady on his feet. He is tolerating the Keppra well. He denies any new neurologic symptoms. 3. On neurological examination, at this time, he does have mild problems with memory and decreased deep tendon reflexes, but the rest of the neurological examination is essentially benign. 4. The CT scan of the brain without contrast performed on 02/09/18 was benign. 5. The MRI of the brain without and with gadolinium done on 02/10/18 revealed mild nonspecific T2 hyperintensity within white matter. No acute pathology, tumor, hippocampal sclerosis or weeks matter hetrotopias were seen. 6. Laboratory data including a CBC and chemistry panel are benign except for a blood glucose elevated to 172, AST elevated to 132, CK elevated to 495 and troponin elevated to 0.222. His urine toxicology screen was negative and in addition, his serum alcohol level was <3. His urinalysis revealed 1+ leukocyte esterase, 5-10 red blood cells, and 2-4 white blood cells per high- power field. 7. The patient's history, neurological examination, laboratory data and imaging studies are most compatible with 2 generalized seizures, the first one approximately 3 to 4 months ago and the second one on 02/09/18. It is unclear as to why the patient has developed a seizure disorder at this age. Intracranial pathology has been excluded with MRI imaging. Recommendations 1. Continue present management. 2. Continue Keppra 1 G q 12 hours. 3. Better BP control - aim for 120/80. 4. Await EEG to evaluate the patient for the type of seizure disorder. 5. The patient was again instructed on the essentials of seizure hygiene. He was told to eat at regular intervals, not get dehydrated, stop drinking alcohol , make sure that he does not use any illicit drugs, make sure that he takes his antiseizure medicine on a regular basis and make sure that he sleeps well - that is he sleeps at least 7 hours in a 24-hour period. Jerilyn Oneal M.D., M.S.P.H. JERILYN ONEAL February 10, 2018 17:40
[2018-02-10] MEDS ORDERED: Magnesium Oxide 400mg tab ORAL SCH (18:00)
--- NOTE | 2018-02-10 20:18 | General Progress Note ---
Assessment/Plan Problem List: (1) Hypertensive emergency ICD Codes: I16.1 - Hypertensive emergency SNOMED: 846698224068628 (2) Elevated troponin ICD Codes: R74.8 - Abnormal levels of other serum enzymes SNOMED: 542522709, 599549777, 651114431 (3) Post-ictal confusion ICD Codes: F05 - Delirium due to known physiological condition SNOMED: 84886738 (4) Seizure disorder ICD Codes: G40.909 - Epilepsy, unspecified, not intractable, without status epilepticus SNOMED: 144815693 Status: stable, progressing Assessment/Plan - Cardiology and neurology consulted. appreciate rec's - EKG NSR - trend trops x 3. initial trop 0.22 but next two unremarkable. initial troponin elevated with elevated CPK likely 2/2 seizure event. ACS ruled out - TTE showing EF 60% with increased RA pressure - s/p IV keppra. check keppra level. start keppra 1000mg BID - hydralazine 10mg IV q6hr prn SBP > 160 - norvasc 10mg qd - add metoprolol 25mg BID - CT head negative - f/u EEG - f/u MRI brain w/ and w/o gadolinium contrast - CXR negative - utox negative - dirty UA. will repeat UA with urine culture - pain control and supportive care DVT ppx: HSQ Full code Disposition: I anticipate the patient to be discharged to the following environment once patient is medically cleared - home I spent a total of 32 minutes on this patient's case, with greater than 50% spent on care and coordination of the patient. Case was d/w cardiology, neurology, nursing staff, CM/SW, and patient. Subjective Date patient seen: February 10, 2018 Time patient seen: 11:00 Allergies: Coded Allergies: No Known Allergies (Unverified , 02/09/18) Subjective - systolic BP better controlled in the 150s - no acute events overnight. denies headaches, seizures, n/v. - seen by cards and neuro Objective Last 24 Hour Vital Signs Date Time Temp Pulse Resp B/P (MAP) Pulse Ox O2 Delivery O2 Flow Rate FiO2 02/10/18 16:30 99.6 100 21 157/102 94 Room Air 99.6 02/10/18 15:27 88 02/10/18 12:00 99.0 92 20 156/116 96 Room Air 99.0 02/10/18 11:55 94 02/10/18 08:54 104 151/99 02/10/18 08:54 104 151/99 02/10/18 08:00 98.7 104 21 151/99 95 Room Air 98.7 02/10/18 07:46 89 02/10/18 04:00 98.9 88 20 153/85 98 Room Air 98.9 02/10/18 04:00 80 02/10/18 00:00 98.7 89 20 151/92 94 Room Air 98.7 02/09/18 23:58 81 02/09/18 20:44 113 165/124 Intake and Output 02/09/18 02/10/18 19:00 07:00 Intake Total 400 ml 300 ml Balance 400 ml 300 ml Intake Oral 300 ml 300 ml IV Total 100 ml # Voids 3 1 Laboratory Tests 02/10/18 03:50: White Blood Count 6.0, Red Blood Count 4.67L, Hemoglobin 14.8, Hematocrit 43.5, Mean Corpuscular Volume 93, Mean Corpuscular Hemoglobin 31.8H, Mean Corpuscular Hemoglobin Concent 34.1, Red Cell Distribution Width 12.4, Platelet Count 173, Mean Platelet Volume 7.3, Neutrophils (%) (Auto) 67.2, Lymphocytes (%) (Auto) 23.9, Monocytes (%) (Auto) 6.5, Eosinophils (%) (Auto) 1.4, Basophils (%) (Auto ) 1.0, Sodium Level 137, Potassium Level 3.5, Chloride Level 99, Carbon Dioxide Level 27, Anion Gap 11, Blood Urea Nitrogen 9, Creatinine 0.9, Estimat Glomerular Filtration Rate > 60, Glucose Level 92, Hemoglobin A1c 5.5, Calcium Level 9.3, Magnesium Level 1.7L, Troponin I 0.006, Triglycerides Level 68, Cholesterol Level 188, LDL Cholesterol 64, HDL Cholesterol 112H, Cholesterol/ HDL Ratio 1.7L, Thyroid Stimulating Hormone (TSH) 1.718 02/10/18 12:05: Troponin I 0.000 Height (Feet): 6 Height (Inches): 2.00 Weight (Pounds): 195 General Appearance: no apparent distress, alert EENT: PERRL/EOMI, normal ENT inspection Neck: non-tender, normal alignment, supple Cardiovascular: normal peripheral pulses, normal rate, regular rhythm Respiratory/Chest: chest wall non-tender, lungs clear, normal breath sounds Abdomen: normal bowel sounds, non tender, soft Extremities: normal range of motion, non-tender Neurologic: policy loan calculator II-XII grossly normal, no motor/sensory deficits, alert, oriented x 3 Skin: normal pigmentation, warm/dry Kirsty Gu NP February 10, 2018 20:18
[2018-02-11] VITALS: BP 143/98
[2018-02-11] MEDS ORDERED: HYDROcodone/Acetamin 10/325 tab ORAL PRN (00:15)
[2018-02-11 04:00] VITALS: BP_SYST 136; BP_SYST 141; BP_DIAS 101; BP_DIAS 93
[2018-02-11 08:00] VITALS: BP 152/100
[2018-02-11 08:10] LABS: EOSINOPHILS % (AUTO) 1.7 % (0.0-3.0); HEMATOCRIT 46.8 % (42.0-52.0); HEMOGLOBIN 15.9 G/DL (14.2-18.0); LYMPHOCYTES % (AUTO) 28.3 % (20.0-45.0); MEAN CORPUSCULAR VOLUME 92 FL (80-99); MONOCYTES % (AUTO) 8.8 % (1.0-10.0); NEUTROPHILS % (AUTO) 60.2 % (45.0-75.0); PLATELET COUNT 174 K/UL (150-450); RED BLOOD COUNT 5.07 M/UL (4.70-6.10); RED CELL DISTRIBUTION WIDTH 12.3 % (11.6-14.8); WHITE BLOOD COUNT 6.7 K/UL (4.8-10.8)
[2018-02-11 08:18] LABS: ANION GAP 9 mmol/L (5-15); BLOOD UREA NITROGEN 10 mg/dL (7-18); CALCIUM 9.8 MG/DL (8.5-10.1); CARBON DIOXIDE 29 MMOL/L (21-32); CHLORIDE 98 MMOL/L (98-107); POTASSIUM 3.9 MMOL/L (3.5-5.1); SODIUM 136 MMOL/L (136-145)
[2018-02-11] MEDS ORDERED: Magnesium Oxide 400mg tab ORAL SCH (09:00)
[2018-02-11] MEDS ORDERED: levETIRAcetam 500mg/5ml Liquid ORAL SCH (09:00)
[2018-02-11] MEDS ORDERED: Metoprolol 25mg tab ORAL SCH (09:00)
[2018-02-11] MEDS ORDERED: Heparin 5000 units/ml inj SUBQ SCH (09:00)
[2018-02-11 12:00] VITALS: BP 146/97
--- NOTE | 2018-02-11 14:08 | Neurology Progress Note ---
Interim History Interim History Interim History Mr. Aldana feels very well. He is less sore all over his body. He has been seizure-free. He has been walking around and is steady on his feet. He is tolerating the Keppra well. He denies any new neurologic symptoms. He is eager to go home. Review of Systems Neuro Review of Systems Benign. Objective Physical Exam Last Vital Signs Date Time Temp Pulse Resp B/P (MAP) Pulse Ox O2 Delivery O2 Flow Rate FiO2 02/11/18 12:00 97.8 88 19 146/97 96 Room Air 97.8 Laboratory Tests Test 02/11/18 06:35 White Blood Count 6.7 K/UL (4.8-10.8) Red Blood Count 5.07 M/UL (4.70-6.10) Hemoglobin 15.9 G/DL (14.2-18.0) Hematocrit 46.8 % (42.0-52.0) Mean Corpuscular Volume 92 FL (80-99) Mean Corpuscular Hemoglobin 31.3 PG (27.0-31.0) H Mean Corpuscular Hemoglobin Concent 34.0 G/DL (32.0-36.0) Red Cell Distribution Width 12.3 % (11.6-14.8) Platelet Count 174 K/UL (150-450) Mean Platelet Volume 7.0 FL (6.5-10.1) Neutrophils (%) (Auto) 60.2 % (45.0-75.0) Lymphocytes (%) (Auto) 28.3 % (20.0-45.0) Monocytes (%) (Auto) 8.8 % (1.0-10.0) Eosinophils (%) (Auto) 1.7 % (0.0-3.0) Basophils (%) (Auto) 1.0 % (0.0-2.0) Sodium Level 136 MMOL/L (136-145) Potassium Level 3.9 MMOL/L (3.5-5.1) Chloride Level 98 MMOL/L (98-107) Carbon Dioxide Level 29 MMOL/L (21-32) Anion Gap 9 mmol/L (5-15) Blood Urea Nitrogen 10 mg/dL (7-18) Creatinine 1.0 MG/DL (0.55-1.30) Estimat Glomerular Filtration Rate > 60 mL/min (>60) Glucose Level 82 MG/DL (74-106) Calcium Level 9.8 MG/DL (8.5-10.1) Magnesium Level 2.0 MG/DL (1.8-2.4) Troponin I 0.002 ng/mL (0.000-0.056) Neurologic Exam Objective PHYSICAL EXAMINATION: GENERAL: He is a well-developed, well-nourished, pleasant black gentleman, sitting up at the edge of his bed, in no acute distress. HEAD: Normocephalic and atraumatic. EENT: Examination benign except for a right tongue bite tanya. NECK: No neck rigidity was observed. NEUROLOGICAL EXAMINATION: MENTAL STATUS EXAMINATION: He was awake and alert. He was oriented to person, place, and time. He was able to recall 3/3 words immediately, and in 1 minute and 3 minutes on the second trial. He was able to remember presidents, Trump and Obama spontaneously, but needed hints to remember through Urias senior. His mathematical skills were fairly good. His visuospatial function was preserved. SPEECH: He had no dysarthria. LANGUAGE: He had no aphasia. CRANIAL NERVE EXAMINATION: II: The visual maza were intact on confrontation testing. III, IV & : External ocular movements were full and the pupils 3 mm in diameter, equal, round, regular, and reactive to light. V: He had normal facial sensations and the temporales, masseters, and pterygoids functioned normally. VII: He had normal facial expressions and no facial asymmetry. VIII: He was able to hear well bilaterally and had no nystagmus. IX: The palate moved symmetrically on phonation. X: He had no hoarseness of voice. XI: The sternocleidomastoids and trapezii functioned normally. XII: The tongue was in the midline without any fasciculations or atrophy. MOTOR SYSTEM: The tone was normal in all four extremities. Examination of muscle mass revealed no focal wasting. Examination of power revealed G 5/5 power in all muscle groups tested. SENSORY EXAMINATION: He had intact sensations to pinprick, light touch, and graphesthesia. COORDINATION: He performed well on vqeubv-nw-eohy and dmhx-gm-encl testing. On Romberg test, he swayed, but did not fall to one side or the other. REFLEXES: 1+ and bilaterally symmetrical at the biceps, triceps, brachioradialis , and knees, 0 at both ankles. The plantar responses were flexor bilaterally. STANCE: He had a normal stance. GAIT: he had a normal regular gait. Impression/Recommendations Diagnostic Impression 1. Mr. Javier Aldana is a 53-year-old, right-handed black, gentleman, with a history of hypertension and liberal alcohol use in the past who had a generalized seizure approximately 3 to 4 months ago, was started on an antiseizure medicine - the name of which he cannot remember and did relatively well. Then on the morning of February 09, 2018, he had another seizure. He states that this seizure was not associated with any alcohol use. He said that his last drink was 3 weeks ago and in addition, he states that he was taking his medicine regularly. 2. He feels very well. He is less sore all over his body. He has been seizure- free. He has been walking around and is steady on his feet. He is tolerating the Keppra well. He denies any new neurologic symptoms. He is eager to go home. 3. On neurological examination, at this time, he does have mild problems with memory and decreased deep tendon reflexes, but the rest of the neurological examination is essentially benign. 4. The CT scan of the brain without contrast performed on 02/09/18 was benign. 5. The MRI of the brain without and with gadolinium done on 02/10/18 revealed mild nonspecific T2 hyperintensity within white matter. No acute pathology, tumor, hippocampal sclerosis or weeks matter hetrotopias were seen. 6. Laboratory data including a CBC and chemistry panel are benign except for a blood glucose elevated to 172, AST elevated to 132, CK elevated to 495 and troponin elevated to 0.222. His urine toxicology screen was negative and in addition, his serum alcohol level was <3. His urinalysis revealed 1+ leukocyte esterase, 5-10 red blood cells, and 2-4 white blood cells per high- power field. 7. The EEG done on 02/10/18 was normal in the awake and drowsy states. 8. The patient's history, neurological examination, laboratory data and imaging studies are most compatible with 2 generalized seizures, the first one approximately 3 to 4 months ago and the second one on 02/09/18. It is unclear as to why the patient has developed a seizure disorder at this age. Intracranial pathology has been excluded with MRI imaging. Recommendations 1. Continue present management. 2. Continue Keppra 1 G q 12 hours. 3. Better BP control - aim for 120/80. 4. No driving for at least next 3 months. 5. The patient was again instructed on the essentials of seizure hygiene. He was told to eat at regular intervals, not get dehydrated, stop drinking alcohol , make sure that he does not use any illicit drugs, make sure that he takes his antiseizure medicine on a regular basis and make sure that he sleeps well - that is he sleeps at least 7 hours in a 24-hour period. 6. Follow up with neurologist of choice in 6-8 weeks. Jerilyn Oneal M.D., M.S.P.H. JERILYN ONEAL Feb 11, 2018 14:08
--- NOTE | 2018-02-11 14:33 | Cardiac Electrophysiology PN ---
Assessment/Plan Assessment/Plan 1. Accelerated hypertension with blood pressure in the 190s. Better on Amlodipine 10 mg and metoprolol 25 mg b.i.d. and p.r.n. hydralazine. 2. Troponin leak. This was seizures with elevated CPK. EKG is completely normal and his echocardiogram is also normal with ejection fraction of 60%. He does not have any chest pain. He does not have any prior coronary artery disease. 3. Second episode of seizure. Already started on Keppra by Dr. Fernandes Subjective Subjective Feeling better. No chest pain or SOB.Getting ready to be discharged Objective Last 24 Hour Vital Signs Date Time Temp Pulse Resp B/P (MAP) Pulse Ox O2 Delivery O2 Flow Rate FiO2 02/11/18 12:00 97.8 88 19 146/97 96 Room Air 97.8 02/11/18 09:13 90 152/100 02/11/18 09:13 90 152/100 02/11/18 08:00 99.4 90 18 152/100 96 Room Air 99.4 02/11/18 04:00 99.1 87 19 136/101 98 Room Air 99.1 02/11/18 00:00 98.7 81 19 143/98 96 Room Air 98.7 02/10/18 20:45 100 157/102 02/10/18 20:00 103 02/10/18 20:00 99.1 101 21 162/114 97 Room Air 99.1 02/10/18 16:30 99.6 100 21 157/102 94 Room Air 99.6 02/10/18 15:27 88 Intake and Output 02/10/18 02/11/18 19:00 07:00 Intake Total 480 ml 250 ml Balance 480 ml 250 ml Intake Oral 480 ml 250 ml # Voids 2 1 Laboratory Tests Test 02/11/18 06:35 White Blood Count 6.7 K/UL (4.8-10.8) Red Blood Count 5.07 M/UL (4.70-6.10) Hemoglobin 15.9 G/DL (14.2-18.0) Hematocrit 46.8 % (42.0-52.0) Mean Corpuscular Volume 92 FL (80-99) Mean Corpuscular Hemoglobin 31.3 PG (27.0-31.0) H Mean Corpuscular Hemoglobin Concent 34.0 G/DL (32.0-36.0) Red Cell Distribution Width 12.3 % (11.6-14.8) Platelet Count 174 K/UL (150-450) Mean Platelet Volume 7.0 FL (6.5-10.1) Neutrophils (%) (Auto) 60.2 % (45.0-75.0) Lymphocytes (%) (Auto) 28.3 % (20.0-45.0) Monocytes (%) (Auto) 8.8 % (1.0-10.0) Eosinophils (%) (Auto) 1.7 % (0.0-3.0) Basophils (%) (Auto) 1.0 % (0.0-2.0) Sodium Level 136 MMOL/L (136-145) Potassium Level 3.9 MMOL/L (3.5-5.1) Chloride Level 98 MMOL/L (98-107) Carbon Dioxide Level 29 MMOL/L (21-32) Anion Gap 9 mmol/L (5-15) Blood Urea Nitrogen 10 mg/dL (7-18) Creatinine 1.0 MG/DL (0.55-1.30) Estimat Glomerular Filtration Rate > 60 mL/min (>60) Glucose Level 82 MG/DL (74-106) Calcium Level 9.8 MG/DL (8.5-10.1) Magnesium Level 2.0 MG/DL (1.8-2.4) Troponin I 0.002 ng/mL (0.000-0.056) Microbiology Date/Time Source Procedure Growth Status 02/09/18 16:15 Urine,Clean Catch Urine Culture - Preliminary Mixed Gram Positive Organism Resulted Objective HEAD AND NECK: No JVD or carotid bruit. LUNGS: Clear. CARDIOVASCULAR: Regular S1 and S2 with no gallop or murmur. ABDOMEN: Soft. EXTREMITIES: No pitting edema. Miguel Carrillo MD Feb 11, 2018 14:33
[2018-02-11] MEDS ORDERED: METOPROLOL TART50 MG ORAL (14:48)
[2018-02-11] MEDS ORDERED: NORVASC10 MG ORAL (14:48)
[2018-02-11] MEDS ORDERED: KEPPRA LIQ100 MG/1 M ORAL (14:48)
--- NOTE | 2018-02-11 14:49 | Discharge Instructions ---
Discharge Instructions Discharge Instructions Follow Up Orders F/u with PCP and neurologist within 1 week For Congestive Heart Failure Reminder Report to your physician any weight gain of 5 pounds or more in one week. Kirsty Gu NP Feb 11, 2018 14:49
[2018-02-11] MEDS ORDERED: Gadavist 7.5mMol/7.5ml vial IV PRN (16:30)
--- NOTE | 2018-02-11 19:02 | Electroencephalogram ---
DATE OF PROCEDURE: 02/10/2018 EEG REPORT REQUESTING PHYSICIAN: Licha Uribe M.D. HISTORY: This EEG was performed on a 53-year-old gentleman with history of two generalized tonic-clonic seizures. The first one was alcohol-related but the second one was non-alcohol related. The purpose of this EEG was to evaluate the patient for the type of seizure disorder. TECHNICAL NOTE: This EEG was performed on a [employer] with electrodes placed on the scalp according to the International 10-20 system. Hszho-pu-uyylv and czvea-ab-rel montages were used. The EEG was technically satisfactory and was performed in the awake and drowsy states. OBSERVATIONS: In the best awake state, the background activity consisted of 9-9.5 Hz, posteriorly predominant, well-developed, alpha waveforms, which attenuated on eye opening. Drowsiness was characterized by dissolution of the alpha rhythm and the appearance of slower frequencies in the 5-6 Hz theta range. Photic stimulation was performed at various different frequencies and produced no significant change in the EEG background. No focal abnormalities or epileptiform discharges were seen. IMPRESSION: Normal awake and drowsy EEG. COMMENT: A normal EEG does not rule out a seizure disorder. Jose Martin Fernandes M.D., M.S.P.H. DR: Mary JOB#: [id number] [facility] HOSPITALGisele
[2018-02-11] MEDS ORDERED: Metoprolol Tartrate 50mg tab ORAL SCH (21:00)
--- NOTE | 2018-02-17 07:05 | Discharge Summary ---
Discharge Summary Hospital Course Date of Admission February 09, 2018 at 07:25 Date of Discharge Feb 11, 2018 at 15:31 Admitting Diagnosis seizure, positive troponin HPI Javier Aldana is a 53 year old male who was admitted on February 09, 2018 at 07:25 for Seizure, Positive Troponin Patient is a 53 y/o male with a PMH of seizures and HTN that presented to the ER after having a seizure episode this morning. Patient states that he was in the bathroom when the event happened. He reports LOC and does not recall how long he was unconscious for. He states his daughter found him down on the floor of the bathroom and he had some post-ictal confusion. He states that seizure was unwitnessed. He also reports back pain from the fall. CT head in the ER was negative. Patient was also noted to have elevated SBP in the 180s and was given IV metoprolol 5mg twice. Patient continues to have elevated blood pressure. Reports that he does not regularly check his blood pressure but is compliant with his medications. Also reports compliance with his anticonvulsants but does not recall the name of his medications. Denies chest pain, sob, n/v, abdominal pain, dysuria, headaches, generalized weakness, focal deficits. Reports tobacco abuse for 20 years, 1/7 pack per day. Reports occasional alcohol use but no recent alcohol intake. Denies other illicit drug use. Consultations Cardiology, Dr. Carrillo Neurology, Dr. Fernandes Procedures None Hospital Course Patient was admitted for elevated troponin and seizure. Cardiology and neurology were consulted. Initial troponin was elevated at 0.22 but the next two were unremarkable. There was also a mild elevatation with CPK, which could be the likely cause of the elevated initial troponin, and the elevated CPK could be likely 2/2 seizure event. EKG was NSR. TTE showed EF 60% with increased RA pressure. ACS was ruled out. Patient's blood pressure remained elevated and patient was started on metoprolol 25mg BID and blood pressure stabilized. Patient was given IV keppra and was started on 1000mg BID as patient could not recall the name of his seizure medications or if he was on them at home. MRI brain was done, which was highly unremarkable as reviewed by the neurologist. EEG results were also unremarkable. Patient was therefore stable for discharge and was advised to f/u with PMD/neurologist/car dropper within 1 week. Discharge Physical Examination: General Appearance: no apparent distress, alert EENT: PERRL/EOMI, normal ENT inspection Neck: non-tender, normal alignment, supple Cardiovascular: normal peripheral pulses, normal rate, regular rhythm Respiratory/Chest: chest wall non-tender, lungs clear, normal breath sounds Abdomen: normal bowel sounds, non tender, soft Extremities: normal range of motion, non-tender Neurologic: glue maker II-XII grossly normal, no motor/sensory deficits, alert, oriented x 3 Skin: normal pigmentation, warm/dry Discharge Medications New Medications: Amlodipine Besylate (Norvasc) 10 Mg Tablet 10 MG ORAL DAILY for 30 Days, #30 TAB Levetiracetam (Keppra) 100 Mg/1 Ml Solution 1000 MG ORAL Q12HR for 30 Days, #60 TAB Metoprolol Tartrate* (Metoprolol Tartrate*) 50 Mg Tablet 50 MG ORAL Q12HR for 30 Days, #60 TAB Continued Medications: Benazepril Hcl* (Benazepril Hcl*) 10 Mg Tablet Unknown Dose ORAL DAILY, TAB (This prescription has been renewed) Trazodone* (Trazodone*) 150 Mg Tablet Unknown Dose ORAL BEDTIME, TAB (This prescription has been renewed) Discontinued Medications: Amlodipine Besylate* (Amlodipine Besylate*) 2.5 Mg Tablet Unknown Dose ORAL DAILY, TAB Levetiracetam (Keppra Xr) 500 Mg Tab.er.24h Unknown Dose ORAL DAILY, #30 TAB 0 Refills Discharge Condition Upon Discharge: improving, stable Discharge Disposition Patient was discharged to Home (01) Discharge Diagnoses: (1) Hypertensive emergency (2) Elevated troponin (3) Post-ictal confusion (4) UTI (urinary tract infection) Kirsty Gu NP Feb 17, 2018 07:05
== END 2018-02-11 15:31 | disposition home or self-care (01) | DRG 101 ==
LOC: EDBD 05:45 → EMR 06:06 → 2W 07:25 → EDBEDREQ 07:37 → 4E 02-10 22:40
DX: G40.909 Epilepsy, unspecified, not intractable, without status epilepticus (principal); I16.1 Hypertensive emergency; N39.0 Urinary tract infection, site not specified; F05 Delirium due to known physiological condition; I10 Essential (primary) hypertension; R79.89 Other specified abnormal findings of blood chemistry
CPT/HCPCS: 36415; 70450; 70553; 71045; 80048; 80053; 80061; 80299; 80307; 80329; 81001; 81003; 82550; 83036; 83735; 84443; 84484; 85025; 85610; 85651; 85730; 86592; 87086; 93005; 93306; 95819; 99285; A9585; J2405